=== PATIENT | female | born 1990 | race Caucasian/White ===

== ENCOUNTER 2018-06-10 19:41 | Emergency (ER) | payer OTHER ==
[~2018-06-10] VITALS: Wt 68.2 kg
[2018-06-10 20:01] VITALS: BP 129/67; PULSE 74; RESP 18
[2018-06-11] MEDS ORDERED: KETOROLAC 30 MG INJ IM STA (01:06)
[2018-06-11] MEDS ORDERED: METHOCARBAMOL 750 MG TAB PO ONE (01:30)
[2018-06-11] MEDS ORDERED: DEXAMETHASONE 10 MG/ML 1 ML INJ IM ONE (01:30)
--- NOTE | 2018-06-11 05:52 | ERD ---
ER Documentation Chief Complaint Chief Complaint BACK PAIN S/P FALL. PT STATES SHE IS RECOVERING FROM BACK INJURY. ROS All systems reviewed and are negative except as per history of present illness. PMhx/Soc Medical and Surgical Hx: pt denies Surgical Hx History of Surgery: No Anesthesia Reaction: No Hx Neurological Disorder: No Hx Respiratory Disorders: No Hx Cardiac Disorders: No Hx Psychiatric Problems: No Hx Miscellaneous Medical Probl: Yes (L1, L2 Fx 2019) Hx Alcohol Use: Yes (occasional) Hx Substance Use: No Hx Tobacco Use: Yes Smoking Status: Current some day smoker Physical Exam Vitals Vital Signs Date Temp Pulse Resp B/P (MAP) Pulse Ox O2 O2 Flow FiO2 Time Delivery Rate 06/10/18 99.3 74 18 129/67 100 20:01 (87) Physical Exam Const: No acute distress Head: Atraumatic Eyes: Normal Conjunctiva ENT: Normal External Ears, Nose and Mouth. Neck: Full range of motion. No meningismus. Resp: Clear to auscultation bilaterally Cardio: Regular rate and rhythm, no murmurs Abd: Soft, non tender, non distended. Normal bowel sounds Skin: No petechiae or rashes Back: No midline or flank tenderness Ext: No cyanosis, or edema Neur: Awake and alert Psych: Normal Mood and Affect Results 24 hrs Laboratory Tests Test 06/11/18 01:24 POC Beta HCG, Qualitative NEGATIVE Current Medications Medications Dose Sig/Jacqueline Start Time Status Last (Trade) Ordered Route PRN Stop Time Admin Dose Reason Admin Ketorolac 30 mg ONCE STAT 06/11/18 DC Tromethamine IM 01:06 (Toradol) 06/11/18 01:07 10 mg ONCE ONCE 06/11/18 DC Dexamethasone IM 01:30 (Decadron) 06/11/18 01:31 750 mg ONCE ONCE 06/11/18 DC Methocarbamol PO 01:30 (Robaxin) 06/11/18 01:31 Departure Diagnosis: Primary Impression: Back pain Condition: Good KUMARMYAH Jun 11, 2018 05:52
== END 2018-06-11 03:19 | disposition left against medical advice (07) ==
LOC: FTE 19:41
DX: M54.9 Dorsalgia, unspecified (principal); F17.210 Nicotine dependence, cigarettes, uncomplicated
CPT/HCPCS: 81025; Z7502; Z7610; 99282; J1100; J1885